=== PATIENT | female | born 1965 | race Caucasian/White ===

== ENCOUNTER 2024-12-28 08:59 | Inpatient (IN) | payer MEDICAID ==
[~2024-12-28] VITALS: Ht 162.6 cm; Wt 58.1 kg
[2024-12-28 10:24] LABS: BASOPHILS % 0.5 % (0.0-2.0); MEAN CORPUSCULAR HEMOGLOBIN 26.7 pg (28.0-32.0); MEAN CORPUSCULAR HGB CONC 33.4 g/dL (31.0-37.0); MEAN PLATELET VOLUME 9.9 fl (7.4-10.4); MONOCYTES % 5.3 % (2.0-8.0); NEUTROPHILS % 77.2 % (40.0-76.0); PLATELET 241 x1000/uL (130-400); RED BLOOD CELL COUNT 4.88 mill/uL (4.2-5.4); RED CELL DISTRIBUTION WIDTH 14.6 % (11.6-14.6); WHITE BLOOD COUNT 8.9 x1000/uL (4.5-11.0)
[2024-12-28 10:37] LABS: BG BASE EXCESS -0.9 mmol/L (-2.0-3.0); BG CARBOXYHEMOGLOBIN 4.2 % (0.5-1.5); BG DEOXYHEMOGLOBIN 3.3 % (0.0-5.0); BG FRACTION INSPIRED OXYGEN 21; BG HCO3 ACT 23.9 mmol/L (21.0-28.0); BG METHEMOGLOBIN 0.3 % (0.5-1.5); BG OXYGEN SATURATION 96.5 % (94.0-98.0); BG OXYHEMOGLOBIN 92.2 % (94.0-98.0); BG PCO2 40.3 mmHg (32.0-45.0); BG PH 7.391 (7.350-7.450); BG PO2 87.3 mmHg (83.0-108.0); BG SAMPLE SITE RIGHT BRACHIAL; BG TOTAL HEMOGLOBIN 13.7 g/dL (12.0-16.0); BG VENT MODE ROOM AIR
[2024-12-28] MEDS: SODIUM CHLORIDE 0.9% 1,000 ML IV ONE ×2 (10:40→12:12)
[2024-12-28 11:14] LABS: CHLORIDE 104 mEq/L (98-107); POTASSIUM 4.7 mEq/L (3.5-5.1); SODIUM 137 mEq/L (136-145)
[2024-12-28 11:15] LABS: CARBON DIOXIDE 23 mEq/L (21-32)
[2024-12-28 11:16] LABS: CALCIUM 9.4 mg/dL (8.7-10.4)
[2024-12-28 11:20] LABS: CREATININE 0.8 mg/dL (0.6-1.0); UREA NITROGEN BLOOD 13 mg/dL (9-23)
[2024-12-28 11:27] LABS: BETA HYDROXYBUTYRATE 0.3 mMol/L (0.0-0.3)
[2024-12-28 11:35] LABS: GLUCOSE 495 mg/dL (70-105); TROPONIN I HIGH SENSITIVITY < 4 ng/L (3.0-34)
[2024-12-28] MEDS ORDERED: INSULIN REGULAR (HUMULIN R) 1000UNITS/10ML VIAL IV ONE (11:45)
[2024-12-28] MEDS ORDERED: ACETAMINOPHEN 325MG TABLET PO PRN (13:15)
[2024-12-28] MEDS ORDERED: IPRATROPIUM/ALBUTEROL 0.5-3(2.5)MG/3ML NEB HHN PRN (13:15)
[2024-12-28] MEDS ORDERED: DOCUSATE SODIUM 100MG CAPSULE PO PRN (13:15)
[2024-12-28] MEDS ORDERED: MAGNESIUM/ALUMINUM HYDROXIDE/SIMETHICONE 30ML UDC PO PRN (13:15)
[2024-12-28] MEDS ORDERED: ONDANSETRON HCL 4MG/2ML INJ IV PRN (13:15)
[2024-12-28] MEDS ORDERED: GUAIFENESIN 200MG/10ML SUGAR FREE UDC PO PRN (13:15)
[2024-12-28] MEDS ORDERED: DEXTROSE 50% WATER 50ML SYRINGE IV PRN (13:15)
[2024-12-28] MEDS ORDERED: CLONIDINE 0.1MG TABLET PO PRN (13:15)
[2024-12-28] MEDS: INSULIN REGULAR (HUMULIN R) 1000UNITS/10ML VIAL IV SCH (13:24)
[2024-12-28] MEDS: INSULIN LISPRO 100 UNITS/ML SUBCUT SCH (15:22)
[2024-12-28] MEDS: ENOXAPARIN 40MG/0.4ML SYR SUBCUT SCH (15:28)
[2024-12-28] MEDS: PANTOPRAZOLE SODIUM 40 MG/VIAL IV SCH (16:02)
[2024-12-28] MEDS: BLOOD SUGAR DIAGNOSTIC STRIP TEST SCH (17:00)
[2024-12-28 17:56] VITALS: BP 117/72; PULSE 92; RESP 16; TEMP 36.7
[2024-12-28] MEDS ORDERED: METF-1150 PO (18:39)
[2024-12-28 20:05] VITALS: BP 130/69; PULSE 108; RESP 18; TEMP 37.2; O2SAT 99
[2024-12-28 21:13] LABS: CREATINE KINASE 29 IU/L (34-145)
[2024-12-28 21:22] LABS: TROPONIN I HIGH SENSITIVITY < 4 ng/L (3.0-34)
[2024-12-29] VITALS (7 sets, daily range): BP systolic 98–154; BP diastolic 53–79; PULSE 68–90; RESP 18; TEMP 36.5–38.3; O2SAT 94–100
[2024-12-29 07:26] LABS: CHLORIDE 103 mEq/L (98-107); POTASSIUM 3.9 mEq/L (3.5-5.1); SODIUM 137 mEq/L (136-145)
[2024-12-29 07:27] LABS: CALCIUM 9.1 mg/dL (8.7-10.4); CARBON DIOXIDE 25 mEq/L (21-32)
[2024-12-29 07:32] LABS: BASOPHILS % 0.6 % (0.0-2.0); CREATININE 0.7 mg/dL (0.6-1.0); DIFFERENTIAL COMMENT 0; EOSINOPHILS % 3.9 % (0.0-5.0); GLUCOSE 325 mg/dL (70-105); HEMATOCRIT. 39.3 % (36.0-48.0); HEMOGLOBIN. 12.7 g/dL (12.0-16.0); LYMPHOCYTES % 29.2 % (20.0-50.0); MEAN CORPUSCULAR HEMOGLOBIN 25.6 pg (28.0-32.0); MEAN CORPUSCULAR HGB CONC 32.4 g/dL (31.0-37.0); MEAN CORPUSCULAR VOLUME 79.1 fL (81.0-99.0); MEAN PLATELET VOLUME 10.1 fl (7.4-10.4); MONOCYTES % 6.5 % (2.0-8.0); NEUTROPHILS % 59.8 % (40.0-76.0); PLATELET 239 x1000/uL (130-400); RED BLOOD CELL COUNT 4.96 mill/uL (4.2-5.4); RED CELL DISTRIBUTION WIDTH 14.6 % (11.6-14.6); TRIGLYCERIDE 160 mg/dL (0-150); UREA NITROGEN BLOOD 13 mg/dL (9-23); WHITE BLOOD COUNT 7.6 x1000/uL (4.5-11.0)
[2024-12-29 07:33] LABS: LDL CHOLESTEROL 89 mg/dL (5-100)
[2024-12-29 07:34] LABS: ALANINE AMINOTRANSFERASE 12 IU/L (10-49); ALBUMIN 3.7 g/dL (3.2-4.8); ASPARTATE AMINOTRANSFERASE 9 IU/L (<34); BILIRUBIN TOTAL 0.4 mg/dL (0.1-1.0); CHOLESTEROL 156 mg/dL (<200); HDL CHOLESTEROL 43 mg/dL (>65); PHOSPHORUS 3.1 mg/dL (2.5-4.9); PROTEIN TOTAL 6.8 g/dL (6.0-8.3)
[2024-12-29 07:36] LABS: T4 FREE 1.48 ng/dL (0.89-1.76)
[2024-12-29 07:37] LABS: THYROID STIMULATING HORMONE 1.37 uIU/mL (0.55-4.78)
[2024-12-29] MEDS ORDERED: DEXTROSE 50% WATER 50ML SYRINGE IV PRN ×2 (13:00→17:00)
[2024-12-29] MEDS: BLOOD SUGAR DIAGNOSTIC STRIP TEST SCH (17:10)
[2024-12-29] MEDS: INSULIN LISPRO 100 UNITS/ML SUBCUT SCH (17:40)
[2024-12-29] MEDS: INSULIN GLARGINE 100 UNITS/ML SUBCUT SCH (22:39)
[2024-12-29] MEDS: MELATONIN 3MG TABLET PO SCH (23:16)
[2024-12-29] MEDS: ACETAMINOPHEN 325MG TABLET PO PRN (23:17)
[2024-12-30] VITALS: BP 114/56; PULSE 70; RESP 18; TEMP 36.9; O2SAT 95
[2024-12-30 04:00] VITALS: BP 104/51; PULSE 77; RESP 18; TEMP 36.6; O2SAT 99
[2024-12-30 04:08] LABS: CLARITY URINE CLEAR (CLEAR); COLOR URINE YELLOW (YELLOW); GLUCOSE URINE 3+ (NEGATIVE); KETONES URINE NEGATIVE (NEGATIVE); LEUKOCYTE ESTERASE URINE 2+ (NEGATIVE); NITRITE URINE NEGATIVE (NEGATIVE); OCCULT BLOOD URINE NEGATIVE (NEGATIVE); PH URINE 5.5 (4.5-8.0); PROTEIN URINE NEGATIVE (NEGATIVE); SPECIFIC GRAVITY URINE 1.015 (1.005-1.030); UROBILINOGEN URINE 0.2 E.U./dL (0.2-1.0)
[2024-12-30 04:20] LABS: *AMPHETAMINES SCREEN URINE PRESUMPTIVE POSITIVE (NEGATIVE); *BARBITURATES SCREEN URINE NEGATIVE (NEGATIVE); *BENZODIAZEPINES SCREEN URINE NEGATIVE (NEGATIVE); *COCAINE SCREEN URINE NEGATIVE (NEGATIVE); METHADONE URINE SCREEN NEGATIVE (NEGATIVE)
[2024-12-30 04:21] LABS: CANNABINOID URINE SCREEN NEGATIVE (NEGATIVE); ECSTASY MDMA SCREEN URINE NEGATIVE (NEGATIVE); OPIATES URINE SCREEN NEGATIVE (NEGATIVE); PHENCYCLIDINE URINE SCREEN NEGATIVE (NEGATIVE)
[2024-12-30 04:28] LABS: RBC URINE 0-2 /hpf (0-2)
[2024-12-30 04:29] LABS: SQUAMOUS EPITHELIAL CELL URINE FEW /lpf (RARE/1+)
[2024-12-30 04:30] LABS: BACTERIA URINE 3+
[2024-12-30 08:00] VITALS: BP 103/66; PULSE 80; RESP 18; TEMP 36.5; O2SAT 96
[2024-12-30 11:06] LABS: BASOPHILS % 0.8 % (0.0-2.0); DIFFERENTIAL COMMENT 0; EOSINOPHILS % 2.8 % (0.0-5.0); HEMATOCRIT. 38.4 % (36.0-48.0); HEMOGLOBIN. 12.5 g/dL (12.0-16.0); LYMPHOCYTES % 26.9 % (20.0-50.0); MEAN CORPUSCULAR HEMOGLOBIN 25.9 pg (28.0-32.0); MEAN CORPUSCULAR HGB CONC 32.5 g/dL (31.0-37.0); MEAN CORPUSCULAR VOLUME 79.7 fL (81.0-99.0); MONOCYTES % 8.4 % (2.0-8.0); NEUTROPHILS % 61.1 % (40.0-76.0); PLATELET 209 x1000/uL (130-400); RED BLOOD CELL COUNT 4.82 mill/uL (4.2-5.4); RED CELL DISTRIBUTION WIDTH 14.7 % (11.6-14.6)
[2024-12-30 11:21] LABS: CARBON DIOXIDE 27 mEq/L (21-32); CHLORIDE 103 mEq/L (98-107); POTASSIUM 3.9 mEq/L (3.5-5.1); SODIUM 138 mEq/L (136-145)
[2024-12-30 11:25] LABS: CREATININE 0.8 mg/dL (0.6-1.0)
[2024-12-30 11:27] LABS: GLUCOSE 304 mg/dL (70-105); UREA NITROGEN BLOOD 15 mg/dL (9-23)
[2024-12-30 12:00] VITALS: BP 103/56; PULSE 66; RESP 17; TEMP 36.3; O2SAT 98
[2024-12-30] MEDS: CEFTRIAXONE 1GM/50ML 50 ML IV SCH (13:08)
[2024-12-30] MEDS: INSULIN GLARGINE 100 UNITS/ML SUBCUT SCH ×2 (13:09→21:23)
[2024-12-30 16:00] VITALS: BP 91/52; PULSE 69; RESP 18; TEMP 36.6; O2SAT 96
[2024-12-30] MEDS: INSULIN LISPRO 100 UNITS/ML SUBCUT SCH (17:40)
[2024-12-30 20:00] VITALS: BP 111/52; PULSE 64; RESP 20; TEMP 36.3; O2SAT 98
[2024-12-31] VITALS: BP 117/55; PULSE 71; RESP 20; TEMP 36.1; O2SAT 98
[2024-12-31 04:00] VITALS: BP 105/59; PULSE 65; RESP 20; TEMP 36.5; O2SAT 98
[2024-12-31 06:39] LABS: CARBON DIOXIDE 26 mEq/L (21-32); CHLORIDE 104 mEq/L (98-107); POTASSIUM 3.8 mEq/L (3.5-5.1); SODIUM 140 mEq/L (136-145)
[2024-12-31 06:40] LABS: CALCIUM 9.3 mg/dL (8.7-10.4)
[2024-12-31 06:45] LABS: CREATININE 0.7 mg/dL (0.6-1.0); GLUCOSE 237 mg/dL (70-105)
[2024-12-31 06:46] LABS: UREA NITROGEN BLOOD 13 mg/dL (9-23)
[2024-12-31 08:00] VITALS: BP 115/70; PULSE 72; RESP 18; TEMP 36.5; O2SAT 100
[2024-12-31 08:25] LABS: BASOPHILS % 0.5 % (0.0-2.0); DIFFERENTIAL COMMENT 0; EOSINOPHILS % 2.5 % (0.0-5.0); HEMATOCRIT. 36.8 % (36.0-48.0); HEMOGLOBIN. 11.9 g/dL (12.0-16.0); LYMPHOCYTES % 33.7 % (20.0-50.0); MEAN CORPUSCULAR HEMOGLOBIN 25.7 pg (28.0-32.0); MEAN CORPUSCULAR HGB CONC 32.4 g/dL (31.0-37.0); MEAN CORPUSCULAR VOLUME 79.4 fL (81.0-99.0); MEAN PLATELET VOLUME 10.2 fl (7.4-10.4); MONOCYTES % 8.8 % (2.0-8.0); NEUTROPHILS % 54.5 % (40.0-76.0); PLATELET 216 x1000/uL (130-400); RED BLOOD CELL COUNT 4.64 mill/uL (4.2-5.4); RED CELL DISTRIBUTION WIDTH 14.6 % (11.6-14.6)
[2024-12-31] MEDS ORDERED: METF-1150 PO (11:20)
[2024-12-31 12:00] VITALS: BP 121/82; PULSE 76; RESP 18; TEMP 36.4; O2SAT 99
[2024-12-31 12:25] VITALS: BP 121/82; PULSE 76; TEMP 97.6; O2SAT 99
== END 2024-12-31 15:04 | disposition home or self-care (01) | DRG 420 ==
LOC: ER 09:05 → EDBD 09:05 → EDBEDREQTM 11:51 → EDBEDREQ 11:51 → 8WST 17:38
PROVIDERS: ADMIT Internal Medicine; ATTEND Internal Medicine
PROC: GZ56ZZZ Individual Psychotherapy, Supportive (ICD-10-PCS; principal; 2024-12-31)
DX: E11.65 Type 2 diabetes mellitus with hyperglycemia (principal); R45.851 Suicidal ideations; F32.A Depression, unspecified; I10 Essential (primary) hypertension; N39.0 Urinary tract infection, site not specified; F17.210 Nicotine dependence, cigarettes, uncomplicated; F43.21 Adjustment disorder with depressed mood; F43.9 Reaction to severe stress, unspecified; Z63.4 Disappearance and death of family member; Z79.4 Long term (current) use of insulin; Z79.84 Long term (current) use of oral hypoglycemic drugs
CPT/HCPCS: 36415; 36600; 71045; 80048; 80053; 80061; 80305; 81003; 82010; 82375; 82550; 82805; 82962; 83036; 83735; 83880; 84100; 84439; 84443; 84484; 85025; 93005; 93306; 93970; 99285; A4606; J0696; J1650; J1815; J2470; J7030